=== PATIENT | female | born 1965 | race Two or more races ===

== ENCOUNTER 2017-06-17 04:51 | Emergency (ER) | payer OTHER ==
[2017-06-17 04:59] VITALS: BP 147/87; PULSE 70; RESP 18; O2SAT 97
--- NOTE | 2017-06-17 05:06 | EDPHY ---
H & P Stated Complaint: Dental pain HPI/ROS: HPI CHIEF COMPLAINT: Right lower posterior molar dental pain. HISTORY OF PRESENT ILLNESS: Patient is a 51-year-old female, history of hypertension, presents emergency room with progression of 3 weeks of right posterior lower dental pain. Patient reports that initially got better however it has significantly gotten worse and the pain is rather severe. 11/19. She has been taking ibuprofen for this. She reports to me that the pain got severe tonight so she decided come the emergency room. She does have a local dentist but did not make a follow-up appointment. She denies any fever. Denies trouble swallowing. Pain is located right posterior lower molar. 11/19. Past Medical History: Hypertension Past Surgical History: Denies any recent surgery Social History: Denies drugs alcohol tobacco products Family History: Noncontributory ROS REVIEW OF SYSTEMS: A comprehensive 10 point review of systems is otherwise negative aside from elements mentioned in the history of present illness. Exam Constitutional appears well nontoxic, triage nursing summary reviewed, vital signs reviewed, awake/alert. Eyes normal conjunctivae and sclera, EOMI, PERRLA. HENT oropharynx: Posterior right lower molar: This shows dental decay present. There is no gumline abscess. No signs of Mateo's. Dental decay. normal inspection, atraumatic, moist mucus membranes, no epistaxis, neck supple / no meningismus, no raccoon eyes. Respiratory clear to auscultation bilaterally, normal breath sounds, no respiratory distress, no wheezing. Cardiovascular rate normal, regular rhythm, no murmur, no edema, distal pulses normal. Gastrointestinal soft, non-tender, no rebound, no guarding, normal bowel sounds, no distension, no pulsatile mass. Genitourinary no CVA tenderness. Musculoskeletal no midline vertebral tenderness, full range of motion, no calf swelling, no tenderness of extremities, no meningismus, good pulses, neurovascularly intact. Skin pink, warm, & dry, no rash, skin atraumatic. Neurologic awake, alert and oriented x 3, AAOx3, moves all 4 extremities equally, motor intact, sensory intact, CN II-XII intact, normal cerebellar, normal vision, normal speech. Psychiatric normal mood/affect. Heme/Lymph/Immune no lymphadenopathy. Differential Diagnosis: Includes but is not limited to in a particular order acute dental pain, dental decay, dental caries, apical abscess, pulpitis, Alveolitis Medical Decision Making: Plan for this patient: Will start on Pen-VK, as well as Sidney. She does state that she is seated medicine allergy with eye swelling however has taken Vicodin Sidney in the past. She said she does fine with this. Will distally refer her to dentistry. Dental 911. Dental Aid. Return precautions discussed as well. Source: Patient - Personal History Current Tetanus/Diphtheria Vaccine: Unsure Current Tetanus Diphtheria and Acellular Pertussis (TDAP): Unsure Tetanus Vaccine Date: unsure - Medical/Surgical History Hx Asthma: No Hx Chronic Respiratory Disease: No Hx Diabetes: No Hx Cardiac Disease: No Hx Renal Disease: No Hx Cirrhosis: No Hx Alcoholism: No Hx HIV/AIDS: No Hx Splenectomy or Spleen Trauma: No Other PMH: recent back injury,migraines, - Social History Smoking Status: Never smoked Constitutional: Initial Vital Signs Heart Rate 70 06/17/17 04:54 Respiratory Rate 18 06/17/17 04:54 Blood Pressure 147/87 H 06/17/17 04:54 O2 Sat (%) 97 06/17/17 04:54 O2 Delivery Mode Room Air Allergies/Adverse Reactions: acetaminophen [From Tylenol] Allergy (Intermediate, Verified 05/21/16 03:36) Itching Home Medications: Medication Instructions Recorded FLUoxetine 05/21/16 Hydrocodone/APAP 5/325 [Sidney 1 - 2 tab PO Q4H PRN #10 tab 06/17/17 5/325] Penicillin V Potassium [Penicillin 500 mg PO BID #14 tab 06/17/17 VK] Departure - Departure Disposition: Home, Routine, Self-Care Clinical Impression: Pain, dental Condition: Good Instructions: Toothache (ED) Additional Instructions: 1. Follow up with her dentist. 2. Call for an appointment. 3. Antibiotics as prescribed. 4. Vicodin for severe pain however this can make you sleepy and do not drive with it. Referrals: [facility] [Other] - As per Instructions Dental 911 [Outside] - As per Instructions Prescriptions: Hydrocodone/APAP 5/325 [Sidney 5/325] 1 - 2 tab PO Q4H PRN #10 tab PRN Reason: Pain, Moderate Penicillin V Potassium [Penicillin VK] 500 mg PO BID #14 tab
[2017-06-17] MEDS ORDERED: HYDROCODONE/APAP 5/325 TAB PO ONE (05:10)
[2017-06-17] MEDS ORDERED: PENICILLIN VK 500 MG TAB PO ONE (05:10)
== END 2017-06-17 05:37 | disposition home or self-care (01) ==
DX: K08.89 Other specified disorders of teeth and supporting structures (principal); I10 Essential (primary) hypertension

== ENCOUNTER 2017-10-20 16:08 | Emergency (ER) | payer MEDICAID, OTHER ==
--- NOTE | 2017-10-20 17:11 | EDPHY ---
H & P Time Seen by Provider: 10/20/17 16:49 HPI/ROS: HPI Right 3rd finger pain. 52-year-old female by private vehicle with her daughter. 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 She reports she was wearing a tight glove on her right hand. She reports that she took this off last night and noticed that half of her 3rd finger was black and blue. She reports that she thought it would just go away but the discoloration has continued and she has developed swelling and pain to the digit. She does not remember hitting it on anything or any kind of trauma involving this finger. She has no other complaint. She was seen at the [facility] prior to coming here. She reports that they did not do x-rays and could not give her a diagnosis. ROS: Constitutional: No fever, no chills. No weakness. Musculoskeletal: No back pain. No neck pain. As above. No other extremity pain. Skin: No rashes. No lacerations or abrasions. Neurological: No focal weakness or altered sensation. Past medical history: Recent back injury. Migraine headaches. Social history: Nonsmoker. No alcohol. Here with her daughter. Physical Exam: General Appearance: Alert, no distress. This patient is responding to questions appropriately and in full sentences. This patient appears well- hydrated and well-nourished. Eyes: Pupils equal and round no pallor or injection. No lid edema, erythema or injection. Right hand exam: Significant for a diffusely swollen and ecchymotic right 3rd finger from the proximal interphalangeal joint distally. She does have pain with passive or active extension or flexion of the digit. She has tenderness on palpation throughout the digit and over the flexor aspect of the digit from the PIP joint distally. She does have normal capillary refill in the finger pad and her sensation is intact in the digit. No associated erythema or warmth. Neurological: Motor sensory function is grossly intact. Cranial nerves are normal. Gait is normal. Skin: Warm and dry, no rashes. Extremities are symmetrical except noted above. All joints range without pain or impingement except noted above. Psychiatric: No agitation. No depression. Database: EKG: Imaging: Right 3rd digit x-ray series: Procedures: Emergency department course: Vital signs reviewed and are normal. She is afebrile The differential diagnosis was reviewed with the patient and her daughter. She was sent for x- rays after my evaluation. Her presentation and exam is concerning for possible Raynaud's syndrome versus flexor tenosynovitis. However, no history of trauma or an inoculation source makes flexor tenosynovitis less likely. The patient will be given 30 mg of extended release nifedipine for treatment of Raynaud syndrome. 6:50 p.m., spoke with on-call orthopedic hand specialist Dr. Jessica Garza. He recommended lab work including CBC, ESR and CRP. This has been ordered. He will see the patient in the emergency department if needed pending discussion of her blood work and reassess. The patient will also be given 3 g of IV Unasyn in the emergency department. 8:20 p.m., spoke with Dr. Jessica Garza. Results of blood work discussed. Patient has no elevation of her white blood cell count. Her ESR and CRP are normal. She has not had a fever. Infectious etiology is less likely. In concert with Dr. Garza, we have decided to send this patient home tonight. I will prescribe her nifedipine but will have her return to the emergency department at 7:00 a.m. tomorrow morning to be rechecked. 8:30 p.m., plan as above discussed with the patient and her daughter. They feel comfortable with this. Repeat examination the patient does have good capillary refill and sensation distally. They will return here tomorrow morning for recheck at 8:00 a.m. in the emergency department. They feel comfortable with this plan. Immediate return to emergency department precautions reviewed with the sister and the daughter. All their questions were answered. The patient was discharged in good condition. I will prescribe her Augmentin as well as nifedipine. She will be given a dose of Augmentin to be taken tonight prior to sleeping. Differential Diagnosis: The differential diagnosis on this patient includes but is not limited to traumatic injury, Raynaud's syndrome, vascular claudication, flexor tenosynovitis. This represents a partial list of diagnoses considered. These considerations are based on history, physical exam, past history, reassessment and diagnostic testing. Smoking Status: Never smoked Constitutional: Initial Vital Signs Temperature (C) 36.7 C 10/20/17 16:25 Heart Rate 70 10/20/17 16:25 Respiratory Rate 16 10/20/17 16:25 Blood Pressure 127/79 H 10/20/17 16:25 O2 Sat (%) 96 10/20/17 16:25 O2 Delivery Mode Room Air Allergies/Adverse Reactions: acetaminophen [From Tylenol] Allergy (Mild, Verified 10/21/17 08:34) Itching Home Medications: Medication Instructions Recorded FLUoxetine HCL [Fluoxetine HCl] 10 mg PO 10/21/17 Medical Decision Making - Data Points Laboratory Results: Laboratory Results 10/20/17 19:08 10/20/17 19:08 Medications Given: Discontinued Medications Amoxicillin/Clavulanate Potassium (Augmentin 875mg) 875 mg PO EDNOW ONE PRN Reason: Protocol Stop: 10/20/17 20:27 Last Admin: 10/20/17 20:45 Dose: 875 mg Ampicillin Sodium/Sulbactam (Sodium 3 gm/ Sodium Chloride) 100 mls @ 200 mls/ hr IV EDNOW ONE PRN Reason: Protocol Stop: 10/20/17 19:52 Last Admin: 10/20/17 19:45 Dose: 100 mls Nifedipine (Adalat Cc) 30 mg PO DAILY ONE Stop: 10/21/17 18:24 Last Admin: 10/20/17 19:35 Dose: 30 mg Departure - Departure Disposition: Home, Routine, Self-Care Clinical Impression: Finger pain, Raynaud's syndrome Condition: Good Instructions: Raynaud Disease (ED) Additional Instructions: Read and follow provided instructions. Return to the emergency department here at 7:00 a.m. to 8:00 a.m. Tomorrow morning. We will recheck your finger at that time. Take medication as prescribed. Return to the emergency department immediately for worsening discoloration of your finger, worsening pain, loss of sensation or other serious concerns. Referrals: NONE *PRIMARY CARE P,. [Primary Care Provider] - As per Instructions
[2017-10-20 19:14] LABS: PLATELET COUNT 292 10^3/uL (150-400)
[2017-10-20] MEDS ORDERED: AMPICILLIN/SULBACTAM 3 GM in NS 100 ML IV ONE (19:23)
[2017-10-20] MEDS ORDERED: AMOXICILLIN/CLAVULANATE POT 875/125 MG TAB PO ONE (20:26)
[2017-10-20 22:58] VITALS: BP 128/77
[2017-10-21] MEDS ORDERED: NIFEdipine ER 30 MG TAB PO ONE (18:23)
== END 2017-10-20 20:48 | disposition home or self-care (01) ==
DX: I73.00 Raynaud's syndrome without gangrene (principal)
CPT/HCPCS: 96365; J0295

== ENCOUNTER 2017-10-21 08:33 | Emergency (ER) | payer OTHER ==
--- NOTE | 2017-10-21 09:43 | EDPHY ---
HPI/HX/ROS/PE/MDM Narrative: CHIEF COMPLAINT: Recheck of right middle finger swelling HPI: The patient is a 52 y/o female who returns with her daughter for evaluation of atraumatic right middle finger swelling. After work up for this in the ED yesterday, she was treated with nifedipine for possible Raynaud's and instructed to return to the ED this morning for recheck. She feels the swelling has decreased and her pain has not worsened in the interim. No other acute complaints. REVIEW OF SYSTEMS: Aside from elements discussed in the HPI, a comprehensive 10-point review of systems was reviewed and is negative. PMH: Migraine headaches. SOCIAL HISTORY: Daughter at bedside. Nonsmoker. No alcohol. Prior medical records reviewed including ED visit 10/20/17 for the same complaint. PHYSICAL EXAM: General:Patient is alert, in no acute distress. ENT:Eyes are normal to inspection. ENT inspection normal. Neck: Normal inspection. Full range of motion. Respiratory:No respiratory distress. Cardiovascular: Strong peripheral pulses. Normal cap refill. Skin: Normal color. No rash. Warm and dry. Extremities: Right middle finger: diffuse ecchymosis, mild swelling, good capillary refill, no warmth or erythema. Otherwise normal appearance. Full range of motion. Neuro: Oriented x3. Normal motor function. Normal sensory function. ED Course: This is a normally healthy 52 y/o female who returns for recheck of atraumatic right middle finger pain and swelling that is being treated as possible Raynaud' s. She reports swelling has improved and pain has not worsened. On exam, she has diffuse ecchymosis, mild swelling, good capillary refill, and no warmth or erythema of the right middle finger. I've recommended continuing the medications she was prescribed and following up with hand specialist on Monday. Return precautions discussed. She is comfortable with this plan. General Time Seen by Provider: 10/21/17 09:33 Initial Vital Signs: Initial Vital Signs Temperature (C) 36.8 C 10/21/17 08:37 Heart Rate 76 10/21/17 08:37 Respiratory Rate 18 10/21/17 08:37 Blood Pressure 103/65 10/21/17 08:37 O2 Sat (%) 98 10/21/17 08:37 O2 Delivery Mode Room Air Allergies/Adverse Reactions: acetaminophen [From Tylenol] Allergy (Mild, Verified 10/21/17 08:34) Itching Home Medications: Medication Instructions Recorded FLUoxetine HCL [Fluoxetine HCl] 10 mg PO 10/21/17 Departure - Departure Disposition: Home, Routine, Self-Care Clinical Impression: Finger pain, right Condition: Good Instructions: Swollen Joint (ED) Additional Instructions: 1. Continue amoxicillin and nifedipine as prescribed. 2. Follow up with the hand specialist, Dr. Garza, on Monday. I recommend calling first thing Monday morning to schedule this appointment. 3. Wear splint for comfort. 4. Return to the ED for worsening pain, swelling, or other worsening of condition. Referrals: Jessica Garza MD [Medical Doctor] - As per Instructions Report Scribed for: John Min Report Scribed by: Viecnta Orellana Date of Report: 10/21/17 Time of Report: 09:43 Physician Review and Approval Statement: Portions of this note were transcribed by an ED scribe. I personally performed the history, physical exam, and medical decision making; and confirm the accuracy of the information in the transcribed note.
[2017-10-21 10:25] VITALS: BP 110/67
== END 2017-10-21 10:25 | disposition home or self-care (01) ==
DX: M79.644 Pain in right finger(s) (principal)
CPT/HCPCS: L3925